=== PATIENT | male | born 1990 | race Caucasian/White ===

== ENCOUNTER 2021-03-19 20:43 | Emergency (ER) | payer OTHER ==
[~2021-03-19] VITALS: Ht 180.3 cm; Wt 120.2 kg
[2021-03-20] MEDS ORDERED: TETANUS-DIPTH-ACEL PERTUSSIS 0.5ML SYR Tdap IM ONE
[2021-03-20] MEDS ORDERED: LIDOCAINE 1% HCL (LOCAL ANESTH.) INJ 20ML MDV IJ ONE
[2021-03-20 01:14] VITALS: BP 123/81
== END 2021-03-20 01:16 | disposition home or self-care (01) ==
LOC: ER 20:47
DX: S51.812A Laceration without foreign body of left forearm, initial encounter (principal); W26.8XXA Contact with other sharp object(s), not elsewhere classified, initial encounter; Y93.89 Activity, other specified; Y92.89 Other specified places as the place of occurrence of the external cause; Y99.8 Other external cause status
CPT/HCPCS: 12002; 90471; 90715; 99283; J2001

== ENCOUNTER 2021-05-15 08:49 | Emergency (ER) | payer OTHER ==
[~2021-05-15] VITALS: Ht 177.8 cm; Wt 127.0 kg
[2021-05-15 08:49] VITALS: BP 142/96
== END 2021-05-15 10:22 | disposition home or self-care (01) ==
LOC: ER 08:49
DX: S62.141A Displaced fracture of body of hamate [unciform] bone, right wrist, initial encounter for closed fracture (principal); W22.8XXA Striking against or struck by other objects, initial encounter; Y93.89 Activity, other specified; Y92.89 Other specified places as the place of occurrence of the external cause; Y99.8 Other external cause status
CPT/HCPCS: 29125; 73100